=== PATIENT | male | born 1985 | race Caucasian/White ===

== ENCOUNTER 2016-10-09 06:26 | Emergency (ER) | payer OTHER ==
[~2016-10-09] VITALS: Ht 193 cm; Wt 119.5 kg
[~2016-10-09 06:26] MED LIST: CARBAMAZEPINE300 MG PO; CARBATROL-ER300 MG PO; DEPAKOTE ER500 MG PO; DIVALPROEX SOD500 M1 PO
[2016-10-09 07:30] LABS: BASOPHIL COUNT 0.1 K/uL (0-0.1); EOSINOPHIL (%) 3.3 % (0-5); EOSINOPHIL COUNT 0.3 K/uL (0-0.3); HEMATOCRIT 44.2 % (38.0-50.0); IMMATURE GRANULOCYTE (%) 0.2 % (0.0-0.7); INSTRUMENT ABS NEUTROPHIL CT 5.1 K/uL; LYMPHOCYTE COUNT 3.2 K/uL (1.0-2.8); MCH 30.8 PG (29.0-34.0); MCHC 33.3 G/DL (30.0-36.0); MCV 92.7 FL (86-99); MEAN PLAT.VOLUME 8.7 uM^3 (9.0-12.4); MONOCYTE (%) 8.2 % (3-12); MONOCYTE COUNT 0.8 K/uL (0-0.8); NEUTROPHIL (%) 53.8 % (45-76); NEUTROPHIL COUNT 5.1 K/uL (1.8-6.4); PLATELET COUNT 231 K/uL (156-360); RBC DIS.WIDTH-CV 12.2 % (11.8-14.6); RBC DIS.WIDTH-SD 41.7 % (39-53); RED BLOOD COUNT 4.77 M/uL (4.00-5.50); WHITE BLOOD COUNT 9.5 K/uL (4.1-10.2)
[2016-10-09 07:39] LABS: CHLORIDE 112 mEq/L (99-109); POTASSIUM 3.8 mEq/L (3.7-5.4); SODIUM 141 mEq/L (136-147)
[2016-10-09 07:41] LABS: GLUCOSE 112 mg/dL (70-99)
[2016-10-09 07:42] LABS: ANION GAP 8 MEQ/L (2-14)
[2016-10-09 07:44] LABS: GFR ESTIMATE (CALCULATED) > 59 mL/min/
[2016-10-09 07:45] LABS: UREA NITROGEN (BUN) 10 mg/dL (9-23)
[2016-10-09 10:28] VITALS: BP 131/81
== END 2016-10-09 10:39 | disposition home or self-care (01) ==
LOC: EME 06:26
PROVIDERS: Emergency Medicine
DX: G40.909 Epilepsy, unspecified, not intractable, without status epilepticus (principal); R07.89 Other chest pain; F17.200 Nicotine dependence, unspecified, uncomplicated
CPT/HCPCS: 70450; 71010; 80048; 80156; 85025; 93005; 99281; 99284